=== PATIENT | female | born 1970 | race Caucasian/White ===

== ENCOUNTER 2018-08-12 16:15 | Emergency (ER) | payer SELFPAY ==
[2018-08-12 16:21] VITALS: BP 109/71; PULSE 99; TEMP 97.5; BMI 33.0
[2018-08-12] MEDS ORDERED: IBUPROFEN 600 MG TABLET (FP) PO ONE ×2 (17:48→18:08)
--- NOTE | 2018-08-12 17:48 | PDOC ---
History of Present Illness - General Chief Complaint: Injury Stated Complaint: FALL Time Seen by Provider: 08/12/18 17:17 Past History - Past Medical History Allergies/Adverse Reactions: Allergies Allergy/AdvReac Type Severity Reaction Status Date / Time shrimp Allergy Verified 08/12/18 16:18 Home Medications: Ambulatory Orders NK [No Known Home Medication] 08/12/18 COPD: No - Immunization History Immunization Up to Date: Yes - Suicide/Smoking/Psychosocial Hx Smoking History: Current every day smoker Information on smoking cessation initiated: No Hx Alcohol Use: No Drug/Substance Use Hx: No *Physical Exam - Vital Signs Last Vital Signs Temp Pulse Resp BP Pulse Ox 97.5 F L 99 H 17 109/71 98 08/12/18 16:18 08/12/18 16:18 08/12/18 16:18 08/12/18 16:18 08/12/18 16:18 *DC/Admit/Observation/Transfer Diagnosis at time of Disposition: Ankle sprain Qualifiers: Encounter type: initial encounter Involved ligament of ankle: unspecified ligament Laterality: right Qualified Code(s): S93.401A - Sprain of unspecified ligament of right ankle, initial encounter Knee sprain Qualifiers: Encounter type: initial encounter Involved ligament of knee: unspecified ligament Laterality: left Qualified Code(s): S83.92XA - Sprain of unspecified site of left knee, initial encounter - Discharge Dispostion Disposition: HOME Condition at time of disposition: Stable Decision to Admit order: No - Referrals Referrals: Dante Baker MD [Staff Physician] - - Patient Instructions Printed Discharge Instructions: DI for Ankle Sprain, DI for Knee Sprain Additional Instructions: you were evaluated for your bilateral ankle pain and left knee pain today. Her x-rays did not show any broken bones. You most likely sprained both ankles and her left knee. Please take Motrin 600 mg every 6 hours for pain and swelling. Please keep the legs elevated while resting. You may ice the ankles and knees for 20 minute intervals Please follow-up with orthopedics this week for further evaluation. A referral has been provided. Return to the ER for numbness and tingling to the extremities, weakness to the extremities are free of any new or worsening symptoms. - Post Discharge Activity Forms/Work/School Notes: Back to Work
[2018-08-12] MEDS ORDERED: VANCOMYCIN 1 GRAM (PRE-DOCKED) 1,000 MG/250 ML BAG IVPB ONE (17:52)
== END 2018-08-12 19:10 | disposition home or self-care (01) ==
LOC: JERFT 16:15
DX: S83.8X2A Sprain of other specified parts of left knee, initial encounter (principal); S93.401A Sprain of unspecified ligament of right ankle, initial encounter; S93.402A Sprain of unspecified ligament of left ankle, initial encounter; W01.0XXA Fall on same level from slipping, tripping and stumbling without subsequent striking against object, initial encounter; Y93.89 Activity, other specified; Y92.89 Other specified places as the place of occurrence of the external cause; Y99.8 Other external cause status
CPT/HCPCS: 73562-TC-LT-FY; 73610-TC-LT-FY; 73610-TC-RT-FY; 73630-TC-LT; 73630-TC-RT-FY; 99282-25

== ENCOUNTER 2018-08-27 16:11 | Emergency (ER) | payer SELFPAY ==
[2018-08-27 16:19] VITALS: BP 106/71; PULSE 77; TEMP 98.5; BMI 31.7
[2018-08-27] MEDS ORDERED: IBUPROFEN 600 MG TABLET (FP) PO ONE ×2 (16:37→16:42)
--- NOTE | 2018-08-27 16:45 | PDOC ---
History of Present Illness - General Chief Complaint: Chronic pain Stated Complaint: FALL TWO WEEKS AGO STILL IN PAIN Time Seen by Provider: 08/27/18 16:33 History Source: Patient Exam Limitations: No Limitations - History of Present Illness Initial Comments: 08/27/18 16:45 bilateral ankle pain. 3 weeks ago sustained a fall where she inverted both of her ankles, was seen here treated for bilateral ankle sprains. Even Arthur wrap and Aircast since that time has discontinued their use. States still has complaints of pain and feeling of instability. Did not follow-up with any orthopedist Occurred: reports: other (3 weeks ago) Pain Location: reports: lower extremity (bilateral ankles ) Modifying Factors: improves with: cold therapy Associated Symptoms (Fall): denies symptoms Past History - Travel Traveled outside of the country in the last 30 days: No Close contact w/someone who was outside of country & ill: No - Past Medical History Allergies/Adverse Reactions: Allergies Allergy/AdvReac Type Severity Reaction Status Date / Time shrimp Allergy Verified 08/27/18 16:30 Home Medications: Ambulatory Orders Naproxen [Naprosyn -] 500 mg PO BID #30 tablet 08/27/18 COPD: No - Immunization History Immunization Up to Date: Yes - Suicide/Smoking/Psychosocial Hx Smoking History: Unknown if ever smoked Hx Alcohol Use: No Drug/Substance Use Hx: No Review of Systems - Review of Systems Able to Perform ROS?: Yes Is the patient limited Chinese proficient: Yes Constitutional: Yes: Symptoms Reported, See HPI, Malaise HEENTM: Yes: See HPI. No: Symptoms Reported Musculoskeletal: Yes: Symptoms Reported, See HPI, Joint Pain, Joint Swelling ( bilateral ankles ) Integumentary: No: Symptoms Reported All Other Systems: Reviewed and Negative *Physical Exam - Vital Signs Last Vital Signs Temp Pulse Resp BP Pulse Ox 98.5 F 77 20 106/71 99 08/27/18 16:14 08/27/18 16:14 08/27/18 16:14 08/27/18 16:14 08/27/18 16:14 - Physical Exam General Appearance: Yes: Nourished, Appropriately Dressed HEENT: positive: IRINA, Normal ENT Inspection, TMs Normal, Pharynx Normal Neck: negative: Tender Extremity: positive: Normal Capillary Refill, Normal Inspection, Normal Range of Motion (with mild painm to lateral malleolus - able to walk but flexion and extension painful . 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 Encouraged to follow up with orthopedist for perhaps physical therapy and other orthotic device to assist *DC/Admit/Observation/Transfer Diagnosis at time of Disposition: History of sprain of both ankles - Discharge Dispostion Disposition: HOME Condition at time of disposition: Stable Decision to Admit order: No - Referrals Referrals: Dante Baker MD [Staff Physician] - - Patient Instructions Printed Discharge Instructions: DI for Ankle Sprain Additional Instructions: Rest, ice to area on and off for 15 minutes 4-6 times a day Avoid heavy lifting or exercise until pain and swelling is resolved or until further directed Keep area highly elevated to reduce swelling Use splints/Arthur wrap as directed Followup with orthopedist in one to 2 days if not improving, if significantly improved may wait one week for followup with orthopedist May use Naprosyn 1500 milligrams tablet every 12 hours as needed for pain - Post Discharge Activity Forms/Work/School Notes: Back to Work
== END 2018-08-27 17:05 | disposition home or self-care (01) ==
LOC: JER 16:11 → JERFT 16:11
DX: S93.401A Sprain of unspecified ligament of right ankle, initial encounter (principal); S93.402A Sprain of unspecified ligament of left ankle, initial encounter
CPT/HCPCS: 99281-25

== ENCOUNTER 2022-05-27 11:05 | Emergency (ER) | payer OTHER ==
[2022-05-27 11:19] VITALS: BP 124/73; RESP 16; TEMP 99.1; BMI 30.2
[2022-05-27 13:07] VITALS: PULSE 80
== END 2022-05-27 13:07 | disposition home or self-care (01) ==
LOC: JER 11:05
DX: U07.1 COVID-19 (principal)
CPT/HCPCS: 0241U-QW; 99283-25

== ENCOUNTER 2023-04-13 08:11 | Emergency (ER) | payer OTHER ==
[2023-04-13 08:38] VITALS: BMI 32.1
[2023-04-13] MEDS ORDERED: SODIUM CHLORIDE 0.9% 500 ML INFUS.BAG IV ONE ×2 (09:26→11:53)
[2023-04-13] MEDS ORDERED: ACETAMINOPHEN 1000 MG/100 ML BAG IVPB ONE (09:26)
[2023-04-13] MEDS ORDERED: METOCLOPRAMIDE HCL INJECTION 10 MG/2 ML VIAL IVPUSH ONE (09:26)
[2023-04-13] MEDS ORDERED: METOCLOPRAMIDE HCL INJECTION 10 MG/2 ML VIAL ONE (09:38)
[2023-04-13] MEDS ORDERED: ACETAMINOPHEN INJECTION 100 ML IVPB ONE (09:38)
[2023-04-13 10:13] LABS: BASO % 0.6 % (0-2.0); EOS % 0.2 % (0-4.5); HEMOGLOBIN 11.3 GM/dL (10.7-15.3); LYMPH % 11.7 % (8-40); MCHC 33.2 g/dl (32.0-36.0); MEAN CELL VOLUME 87.3 fl (80-96); MEAN PLT VOLUME 8.3 fl (7.5-11.1); MONO % 7.2 % (3.8-10.2); NEUT % 80.3 % (42.8-82.8); PLATELET COUNT 268 10^3/uL (134-434); RBC 3.89 M/mm3 (3.60-5.2); RDW 13.5 % (11.6-15.6); WHITE BLOOD COUNT 7.8 K/mm3 (4.0-10.0)
[2023-04-13 10:35] LABS: POTASSIUM 3.9 mmol/L (3.5-5.1)
[2023-04-13 10:37] LABS: ALBUMIN 3.7 g/dl (3.4-5.0); CALCIUM 8.8 mg/dL (8.5-10.1); MAGNESIUM 2.2 mg/dL (1.8-2.4)
[2023-04-13 10:38] LABS: BLOOD UREA NITROGEN 6.9 mg/dL (7-18)
[2023-04-13 10:40] LABS: CREATININE 0.8 mg/dL (0.55-1.3)
[2023-04-13 10:42] LABS: BILIRUBIN,TOTAL 0.4 mg/dL (0.2-1); TOT PROT 7.3 g/dl (6.4-8.2)
[2023-04-13] MEDS ORDERED: KETOROLAC TROMETHAMINE 15 MG/ML VIAL IVPUSH ONE (11:34)
[2023-04-13] MEDS ORDERED: KETOROLAC TROMETHAMINE 15 MG/ML VIAL ONE (11:37)
[2023-04-13 11:51] VITALS: RESP 20
[2023-04-13 13:51] VITALS: BP 125/80; PULSE 99; TEMP 99.5
== END 2023-04-13 13:52 | disposition home or self-care (01) ==
LOC: JERFT 08:11 → JER 08:11 → JERFT 13:52
DX: J10.1 Influenza due to other identified influenza virus with other respiratory manifestations (principal); R50.9 Fever, unspecified; R51.9 Headache, unspecified; R11.2 Nausea with vomiting, unspecified; R05.9 Cough, unspecified; Z20.822 Contact with and (suspected) exposure to COVID-19
CPT/HCPCS: 0241U-QW; 36415; 70450-TC; 80053; 83735; 84484; 84702; 84703; 85025; 93005; 93010; 99285-25

== ENCOUNTER 2023-11-25 10:09 | Emergency (ER) | payer OTHER ==
[2023-11-25 10:18] VITALS: BP 112/75; PULSE 88; RESP 16; TEMP 98.5; BMI 32.1
[2023-11-25] MEDS ORDERED: KETOROLAC TROMETHAMINE 30 MG/1 ML VIAL ONE (12:46)
[2023-11-25 12:47] LABS: THROAT:GRP A STREP NOT DETECTED (NOTDETECTED)
[2023-11-25] MEDS: KETOROLAC TROMETHAMINE 30 MG/1 ML VIAL IM ONE (12:50)
== END 2023-11-25 13:13 | disposition home or self-care (01) ==
LOC: JER 10:09
PROC: 3E0233Z Introduction of Anti-inflammatory into Muscle, Percutaneous Approach (ICD-10-PCS; principal; 2023-11-25)
DX: R51.9 Headache, unspecified (principal); R50.9 Fever, unspecified; B34.9 Viral infection, unspecified; R05.9 Cough, unspecified; J34.89 Other specified disorders of nose and nasal sinuses; R06.7 Sneezing; R11.0 Nausea; M79.10 Myalgia, unspecified site; Z20.822 Contact with and (suspected) exposure to COVID-19
CPT/HCPCS: 0241U-QW; 87651; 99284-25

== ENCOUNTER 2024-02-09 14:56 | Emergency (ER) | payer OTHER ==
[2024-02-09 15:01] VITALS: PULSE 84; RESP 18; TEMP 98.4; BMI 32.1
[2024-02-09 16:17] LABS: EPI CELLS 7 /uL (0-25.1); HYALINE CASTS 0 /uL (0-3.1); PH,URINE 6.5 (5.0-8.0); URINE APPEARANCE CLEAR; URINE BACTERIA 10 /uL (0-1359); URINE BILIRUBIN NEGATIVE (NEGATIVE); URINE COLOR YELLOW; URINE GLUCOSE (UA) NEGATIVE (NEGATIVE); URINE KETONE NEGATIVE (NEGATIVE); URINE LEUK ESTERASE 2+ (NEGATIVE); URINE NITRITE NEGATIVE (NEGATIVE); URINE PROTEIN NEGATIVE (NEGATIVE); URINE RBC 12 /uL (0-23.9); URINE UROBILINOGEN 0.2 mg/dL (0.2-1.0); URINE WBC 98 /uL (0-25.8)
[2024-02-09] MEDS ORDERED: DICYCLOMINE HCL 10 MG CAPSULE ONE (17:15)
[2024-02-09] MEDS ORDERED: MAG HYDROX/AL HYDROX/SIMETH 30 ML UNIT-DOSE CUP ONE (17:16)
[2024-02-09] MEDS: MAG HYDROX/AL HYDROX/SIMETH 30 ML UNIT-DOSE CUP PO ONE (17:19)
[2024-02-09] MEDS: DICYCLOMINE HCL 10 MG CAPSULE PO ONE (17:19)
[2024-02-09 17:44] VITALS: BP 117/79
[2024-02-09 19:38] LABS: HIV INTERPRETATION NEGATIVE (NEGATIVE)
== END 2024-02-09 18:27 | disposition home or self-care (01) ==
LOC: JER 14:56
DX: R10.84 Generalized abdominal pain (principal); K52.9 Noninfective gastroenteritis and colitis, unspecified
CPT/HCPCS: 36415; 81003; 84703; 86803; 87389; 99283-25